=== PATIENT | male | born 1945 | race Caucasian/White ===

== ENCOUNTER 2017-08-11 06:01 | Emergency (ER) | payer MEDICARE, MEDICAID ==
[~2017-08-11] VITALS: Ht 185.4 cm; Wt 70.5 kg
[2017-08-11] MEDS ORDERED: CloNIDine HCL 0.2 MG TABLET PO ONE (06:30)
[2017-08-11 06:43] VITALS: BP 190/128
== END 2017-08-11 09:29 | disposition home or self-care (01) ==
LOC: EMS 06:04
DX: F03.90 Unspecified dementia, unspecified severity, without behavioral disturbance, psychotic disturbance, mood disturbance, and anxiety (principal); I10 Essential (primary) hypertension; F17.210 Nicotine dependence, cigarettes, uncomplicated
CPT/HCPCS: 99283